=== PATIENT | female | born 1985 ===

== ENCOUNTER 2022-10-26 12:05 | Outpatient (CLI) | payer OTHER | END 2022-10-26 13:08 | disposition home or self-care (01) | LOC: PRENATAL 12:05 | PROVIDERS: ATTEND Obstetrics & Gynecology Maternal & Fetal Medicine | DX: O35.9XX0 Maternal care for (suspected) fetal abnormality and damage, unspecified, not applicable or unspecified (principal); O35.3XX0 Maternal care for (suspected) damage to fetus from viral disease in mother, not applicable or unspecified; Z3A.20 20 weeks gestation of pregnancy ==

== ENCOUNTER 2022-12-11 12:45 | Outpatient (CLI) | payer OTHER | END 2022-12-11 13:54 | disposition home or self-care (01) | LOC: PRENATAL 12:45 | PROVIDERS: ATTEND Obstetrics & Gynecology Maternal & Fetal Medicine | DX: O35.9XX0 Maternal care for (suspected) fetal abnormality and damage, unspecified, not applicable or unspecified (principal); O35.3XX0 Maternal care for (suspected) damage to fetus from viral disease in mother, not applicable or unspecified; O09.529 Supervision of elderly multigravida, unspecified trimester; Z3A.19 19 weeks gestation of pregnancy ==

== ENCOUNTER 2023-03-11 14:03 | Outpatient (CLI) | payer OTHER | END 2023-03-11 15:45 | disposition home or self-care (01) | LOC: PRENATAL 14:03 | PROVIDERS: ATTEND Obstetrics & Gynecology Maternal & Fetal Medicine | DX: O35.9XX0 Maternal care for (suspected) fetal abnormality and damage, unspecified, not applicable or unspecified (principal); O09.529 Supervision of elderly multigravida, unspecified trimester; O36.8199 Decreased fetal movements, unspecified trimester, other fetus; Z3A.32 32 weeks gestation of pregnancy ==

== ENCOUNTER 2023-04-07 14:19 | Inpatient (IN) | payer OTHER ==
[~2023-04-07] VITALS: Ht 165.1 cm; Wt 111.1 kg
[2023-04-25] MEDS ORDERED: PRENATAL TABLE1 EAC1 PO (08:14)
== END 2023-04-27 12:03 | disposition home or self-care (01) | DRG 807 ==
LOC: OB/GYN 04-25 07:42 → LDR 04-25 07:42 → OB/GYN 04-25 10:29
PROVIDERS: ADMIT Specialist; ATTEND Specialist
PROC: 10E0XZZ Delivery of Products of Conception, External Approach (ICD-10-PCS; principal; 2023-04-25)
PROC: 0HQ9XZZ Repair Perineum Skin, External Approach (ICD-10-PCS; 2023-04-25)
PROC: 4A1HXCZ Monitoring of Products of Conception, Cardiac Rate, External Approach (ICD-10-PCS; 2023-04-25)
DX: O70.0 First degree perineal laceration during delivery (principal); Z37.0 Single live birth; Z3A.39 39 weeks gestation of pregnancy; Z20.822 Contact with and (suspected) exposure to COVID-19